=== PATIENT | female | born 1985 | race Caucasian/White ===

== ENCOUNTER 2023-02-02 07:41 | Outpatient (REF) | payer OTHER, SELFPAY ==
--- NOTE | ~2023-02-02 | CT_ITS ---
EXAMINATION: CT SINUS WITHOUT CONTRAST CLINICAL INFORMATION: Chronic maxillary sinusitis. COMPARISON: There are no prior studies available for comparison. TECHNIQUE: Multidetector helical imaging was performed in the axial plane with generation of coronal and sagittal reformatted images. This CT examination was performed using dose optimization techniques as appropriate, variously including the following: *Automated exposure control *Adjustment of mA and/or kV according to patient size (this includes techniques or standardized protocols for targeted exams where dose is matched to indication/reason for exam; i.e. extremities or head) *Use of iterative reconstruction technique DLP: 70 mGy-cm. FINDINGS: FRONTAL SINUSES AND DRAINAGE PATHWAYS: The frontal sinuses are hypoplastic bilaterally. MAXILLARY SINUSES AND DRAINAGE PATHWAYS: The maxillary sinuses are well-developed and appear clear bilaterally. The ostiomeatal complexes are patent bilaterally. ETHMOID SINUSES: The ethmoid sinuses are well-developed bilaterally. There is minimal mucoperiosteal thickening the anterior right ethmoid air cells. SPHENOID SINUSES AND DRAINAGE PATHWAYS: The sphenoid sinuses are well-developed bilaterally. There is minimal mucoperiosteal thickening along the anterior right sphenoid sinus. The sphenoethmoidal recesses are patent. NASAL CAVITY AND NASAL SEPTUM: The nasal septum is deviated to the left. There are no prominent bony nasal septal spurs. The anterior right middle turbinate bone is paradoxically curved medially and abuts the right aspect of the nasal septum. ADDITIONAL RELEVANT FINDINGS: The lamina papyracea are intact. The carotid canals are normally covered by bone. The ethmoid roofs are slightly asymmetric, higher on the left. No periapical disease is seen. The TMJs and orbits are normal. The visualized mastoid air cells are clear. There are no acute intracranial findings. CT/CT sinus wo IV con IMPRESSION: 1. There is no significant active sinus disease. 2. The ostiomeatal complexes are patent bilaterally. 3. The nasal septum is deviated to the left. There are no prominent bony nasal septal spurs. The anterior right middle turbinate bone abuts the right aspect of the nasal septum.
== END 2023-02-02 07:42 | disposition home or self-care (01) ==
LOC: HO.CT 07:41
PROVIDERS: PCP Internal Medicine; Visit Provider Otolaryngology Sleep Medicine
DX: J32.0 Chronic maxillary sinusitis (principal); Z98.890 Other specified postprocedural states
CPT/HCPCS: 70486

== ENCOUNTER 2024-10-16 11:02 | Outpatient (AMB) | payer OTHER, SELFPAY ==
--- NOTE | 2024-10-16 11:04 | MHC.PC.OV ---
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 patient needs medication for asthma General Assembler Required: No Is last menstrual period known: No ( control) Post menopausal: No Patient : No Allergies No Known Allergies [No Known Allergies*] Allergy (Verified 10/16/24 11:34) Medication List - Last Reviewed 10/16/24 by Vianca Busch MA albuterol sulfate 90 mcg/actuation 2 puffs inhalation Q6H PRN cetirizine (Zyrtec) 10 mg PO DAILY levonorgestrel-ethinyl estrad 0.1-20 mg-mcg (Vienva) 1 tab PO DAILY Tobacco use date assessed: 10/16/24 Dental Screening Dental Screen Date: 10/16/24 Did you have a dental visit in the last 12 months?: Yes Did you have a dental problem in the last 6 months where you did not have access to dental care?: No Was dental information given to patient?: Patient has dentist HPI HPI Comments History of Present Illness Details 38-year-old female presents to [facility]. She admits to taking her medications as prescribed without adverse reactions. She was on Lexapro in her early 20s. She notes that her depression has been well-controlled. Prior PCP? - Maryann Amaya Last office visit/CPE/labs - 3-4 years ago Acute issue(s) - Reports an average of 2-3 bowel movements daily for about a year; her stools are usually pale but regular. She thinks her symptoms is related to weight gain for 40 lb in the past 2 years. She denies abdominal pain, bloating, n/v/d. Past Medical History - Asthma, hypertension, myopia (wears glasses), depression, psoriasis, endometriosis Surgical History - Sinus surgery Family History - Dad: Asthma, cardiovascular disease, hyperlipidemia, depression, anxiety - MoM: Asthma, depression, anxiety Social History - Nonsmoker. Does not vape. Drinks 1 beer or cocktail monthly. Smokes couple hits of cannabis daily at bedtime - Has been making healthy dietary choices. Exercises routinely. Difficulty maintaining sleep, sometimes related to her cat waking her up, takes melatonin with some improvement Health maintenance - Last eye exam was 2 months ago with [facility] [place]. Record not available. She will sign a release for her PCP to obtain her ophthalmology record - Last dental visit was 3-4 months ago - Last tetanus vaccine was likely in 2019. Record not available; she will research this - She was not vaccinated for the flu this season - Last [facility] smear test [facility] in 05/2024: Normal - Last mammogram was with [facility] in 12/2023: benign ? cyst. 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 [facility] Medical History (Updated 10/16/24 @ 12:01 by Barbi Trotter CNP) Psoriasis Depression High cholesterol Asthma Endometriosis Surgical History (Updated 10/16/24 @ 11:18 by Vianca Busch MA) History of sinus surgery Family History (Updated 10/16/24 @ 11:21 by Vianca Busch MA) Mother FH: mental illness Asthma Father FH: mental illness Asthma High cholesterol Cardiovascular disease Sister FH: mental illness Social History (Updated 10/16/24 @ 11:13 by Vianca Busch MA) Housing: House Patient Tobacco Use Status: Never used Tobacco e-Cigarette/Vaping Use: Never Used Second Hand Smoke Exposure: No Substance Use Type: Marijuana service: No Current occupational status: employed 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 1. Little interest or pleasure in doing things: not at all 2. Feeling down, depressed, or hopeless: not at all 3. Trouble falling or staying asleep, or sleeping too much: several days 4. Feeling tired or having little energy: several days 5. Poor appetite or overeating: not at all 6. Feeling bad about yourself - or that you are a failure or have let yourself or your family down: not at all 7. Trouble concentrating on things, such as reading the newspaper or watching television: not at all 8. Moving or speaking so slowly that other people could have noticed. Or the opposite - being so fidgety or restless that you have been moving around a lot more than usual: not at all 9. Thoughts that you would be better off or of hurting yourself in some way: not at all Total score: 2 Depression Screening Interpretation: Negative Depression Screening Done: Yes 32662 - PHQ-9 Billing: Yes Source: Developed by Drs. John Welch, Nidhi Flood, David Estrella and colleagues, with an educational adrian from [employer]. Thrive Questionnaire Date Thrive assessed: 10/16/24 I am a: Patient What is your living situation today?: I have a steady place to live Within the past 12 months, did the food you bought not last and you didn't have the money to get more?: Never true Within the past 12 months, did you worry whether your food would run out before you got money to buy more?: Never true Do you have trouble paying for medicines?: No Do you have trouble getting transportation to medical appointments?: No Do you have trouble paying your heating and electricity bill?: No Do you have trouble taking care of your child, family member or friend?: No Do you have trouble with day-to-day activities such as bathing, preparing meals, shopping, managing finances, etc.?: No Are you currently unemployed and looking for a job?: No Are you interested in more education?: No Please select the resources that you would like help with: None Currently or been in a relationship where the following occur: No concerns reported THRIVE Score: 0 AUDIT C Alcohol Use Questionnaire (AUDIT-C) 1. How often do you have a drink containing alcohol?: Monthly or less 2. How many drinks containing alcohol do you have on a typical day when you are drinking?: 1 or 2 3. How often do you have six or more drinks on one occasion?: Never Total Score: 1 Score Reviewed/Action Taken: Yes RODERICK-7 AMB Questionnaire RODERICK-7 Date RODERICK - 7 assessed: 10/16/24 Feeling nervous, anxious, or on edge: 0 = Not at all Not being able to stop or control worryin = Not at all Worrying too much about different things: 0 = Not at all Trouble relaxin = Not at all Being so restless that it is hard to sit still: 0 = Not at all Becoming easily annoyed or irritable: 0 = Not at all Feeling afraid as if something awful might happen: 0 = Not at all Total RODERICK-7 score (0-4 normal; 5-9 mild; 10-14 moderate; 15-21 severe): 0 Source: Developed by Drs. John Welch, Nidhi Flood, David Estrella and colleagues, with an educational adrian from [employer]. RODERICK-7 Assessment Billing RODERICK-7 Assessment Tool: RODERICK-7 Assessment 18125 ACT Questionnaire In the past 4 weeks, how much of the time did your asthma keep you from getting as much done at work, school or at home?: None of the time During the past 4 weeks, how often have you had shortness of breath?: Not at all During the past 4 weeks, how often did your asthma symptoms wake you up at night or earlier than usual in the morning?: Once or twice per week During the past 4 weeks, how often have you had to use your rescue inhaler or nebulizer medication?: Once a week or less How would you rate your asthma control during the past 4 weeks?: Well controlled ACT Interpretation: Negative Score: 22 Review of Systems Const Details: Denies chills, Denies fatigue, Denies fever(s), Denies headache(s) and Denies weakness HEENT Denies change in vision, Denies dizziness, Denies headache(s), Denies hearing loss, Denies nasal congestion, Denies sinus pain, Denies sinus pressure and Denies sore throat Card Denies chest pain, Denies lightheadedness, Denies dyspnea and Denies other (palpitations) Resp Denies cough, Denies dyspnea and Denies wheezing GI Reports frequent stools, Denies abdominal pain, Denies melena, Denies hematochezia, Denies dyspepsia and Denies nausea Denies hematuria and Denies dysuria Musc Denies abnormal gait, Denies myalgias, Denies arthralgias, Denies numbness and Denies tingling Skin/Breast Denies rash, Denies unusual bruising and Denies wounds Neuro Denies abnormal gait, Denies dizziness, Denies headache(s), Denies memory loss, Denies numbness, Denies Sensory deficit (Neuro), Denies tingling and Denies weakness Psych Denies anxiety, Denies depression and Denies memory loss Endo Denies cold intolerance, Denies fatigue, Denies heat intolerance, Denies polydipsia and Denies polyuria Pola/Lymph Denies easy bleeding and Denies easy bruising Aller/Immun Denies wheezing Physical exam (Primary Care) Vital Signs: Last Vital Signs Temp 99.5 F 10/16/24 11:15 Pulse 84 10/16/24 11:15 Resp 16 10/16/24 11:15 BP 122/69 10/16/24 11:15 Pulse Ox 97 10/16/24 11:15 Oxygen Delivery Method Room Air 10/16/24 11:15 BMI result Body Mass Index 33.3 Tobacco/Smoking Status: Tobacco use Status Tobacco use date assessed 10/16/24 10/16/24 11:21 Patient Tobacco Use Status Never used Tobacco 10/16/24 11:21 e-Cigarette/Vaping Use Never Used 10/16/24 11:21 PHQ-9: PHQ-9 Score PHQ-9: Total score 2 10/16/24 11:52 Depression Screening Interpretation: Negative Thrive Assessment: Date of Thrive Assessment Date Thrive assessed 10/16/24 10/16/24 11:09 Currently or been in a relationship where the following occur: No concerns reported Const Other: General: no acute distress, well developed, alert and awake Nutritional Appearance: well nourished Orientation/consciousness: patient oriented x3 HENMT Head: Yes normocephalic and Yes atraumatic Ears: hearing grossly normal bilaterally and TM's normal bilaterally General nose exam: Normal external nose present and Normal nares present Mouth: Normal oral and palatal mucosa present and moist mucous membranes Teeth and gingiva: dentition normal Throat: Yes oropharynx normal Eyes Pupils: Equal, round and reactive pupils present and Pupil accommodation reflex normal EOM: EOMs intact bilaterally Neck Neck: Yes normal visual inspection, Yes no lymphadenopathy and Yes trachea midline Thyroid: Thyroid normal Carotids: no bruits Lymphatic: no lymphadenopathy noted Chest Chest palpation & inspection: normal inspection of the chest Resp Effort & Inspection: normal respiratory effort Auscultation: clear to auscultation bilaterally Cardio Rate: regular rate Rhythm: regular rhythm Heart sounds: S1 normal heart sound present, S2 normal heart sound present, no gallops, no murmurs and no rubs Bruits: no abdominal aortic bruits and no carotid bruits GI Palpation (GI): No Abdominal aortic bruit present, Soft to palpation, nontender, No hepatosplenomegaly present and No Rebound tenderness present Auscultation: normal bowel sounds General: Yes no CVA tenderness Back/Spine/Pelvis Back: no CVA tenderness Cervical Spine: cervical ROM normal and No Cervical spine tenderness Thoracic/Lumbar Spine: thoraco-lumbar ROM normal, No pain with thoraco-lumbar ROM, No thoracic spinal tenderness and No lumbar spinal tenderness Skin General: warm and dry. Normal skin color. Normal skin turgor Lesions: no lesions Rashes: no rashes Trauma: no lacerations or abrasions Wounds: no wounds Nails: normal Neuro General: patient oriented x3, gait normal and CN's II-XI intact bilaterally Cranial nerves: Yes Equal, round and reactive pupils present Cognition (Neuro): normal cognition Gait exam (Neuro): Normal gait present Motor exam (neuro): 5/5 motor strength present throughout Sensory Exam: No Sensory deficit (Neuro) Deep tendon reflexes (DTR's): Right patellar reflex intensity grade: 2+ and Left patellar reflex intensity grade: 2+ Extrem General: Yes normal to inspection, No edema and No calf tenderness Psych Appearance: grossly normal Affect: normal affect Attitude: cooperative Thought process: Normal thought process present Coding Level of Care Code New Pt Level 3 (28888) New Pt Prev Care 40-64y(36451) Diagnoses Normal physical examination, routine Z00.00 Asthma J45.909 Obesity (BMI 30-39.9) E66.9 Frequent stools K52.9 Sleep disturbances G47.9 Laboratory tests ordered as part of a complete physical exam (CPE) Z00.00 Additional Codes Asthma Control Questionnaire - ACT Interpretation: Negative ([id number]) RODERICK-7 Assessment Billing - RODERICK-7 Assessment Tool: RODERICK-7 Assessment 01767 ([id number]) PHQ-9 - 52763 - PHQ-9 Billing: Yes ([id number]) Assessment & Plan Assessment & Plan (1) Normal physical examination, routine: Code(s): Z00.00 - Encounter for general adult medical examination without abnormal findings Category: Medical Plan: No significant functional limitations noted. Continue current treatment regimen. Healthy diet and routine exercise encouraged. Perform lab work and follow-up for telehealth visit in 2-3 weeks. Return sooner with symptoms or concerns. Verbalized understanding and agreed with the plan. (2) Asthma: Code(s): J45.909 - Unspecified asthma, uncomplicated Category: Medical Plan: ACT score is 22, well controlled asthma. Continue current treatment regimen. Follow-up with symptoms or concerns. Verbalized understanding and agreed with the plan. (3) Obesity (BMI 30-39.9): Code(s): E66.9 - Obesity, unspecified Category: Medical Plan: She currently weighs 170 lb, BMI is 33.3. Declines referral to store stock help/dietitian or weight management clinic at this time. She notes that she will continue to make lifestyle changes. Healthy diet and routine exercise encouraged. Follow-up as needed. Verbalized understanding and agreed with the plan. (4) Frequent stools: Code(s): K52.9 - Noninfective gastroenteritis and colitis, unspecified Category: Medical Plan: Reports an average of 2-3 bowel movements daily for about a year; her stools are usually pale but regular. She thinks her symptoms is related to weight gain for 40 lb in the past 2 years. She denies abdominal pain, bloating, n/v/d. Likely related to diet. Declines referral to store stock help/dietitian or gastroenterology. She notes that she will continue to make lifestyle changes. Healthy diet and routine exercise encouraged. Follow-up with worsening or new symptoms. Verbalized understanding and agreed with plan. (5) Sleep disturbances: Code(s): G47.9 - Sleep disorder, unspecified Category: Medical Plan: Reports difficulty maintaining sleep, sometimes related to her cat waking her up. She takes melatonin with some improvement. Instructed on sleep hygiene. Weight loss encouraged. Continue current treatment regimen. Follow-up as needed. Verbalized understanding and agreed with the plan. (6) Laboratory tests ordered as part of a complete physical exam (CPE): Code(s): Z00.00 - Encounter for general adult medical examination without abnormal findings Category: Medical Plan: Fasting labs ordered as part of a complete physical exam. Advised to fast for at least 10 hours before getting labs drawn. May drink water Verbalized understanding and agreed with treatment plan.
[2024-10-16 11:15] VITALS: BP 122/69; PULSE 84; RESP 16; TEMP 37.5; O2SAT 97; BMI 33.3
--- OUTSIDE RECORDS SUMMARY | 2024-10-16 12:44 | XMS_ITS | Clinical Summary ---
Author Organization [employer] Address [address] [place] [address] Care Team Providers Care Chief Growth Officer Name Role Phone Unavailable Primary Care Provider Unavailabl e Social History Tobacco Use Types Packs/Day Years Used Date Smoking Tobacco: Never Assessed Comments Unknown Sex and Gender Information Value Date Recorded Sex Assigned at Female 11/24/2023 2:21 PM EDT Legal Sex Female 2:19 PM EDT Gender Identity Female 11/24/2023 2:21 PM EDT Sexual Orientation Not on file Plan of Treatment Health Maintenance Due Date Last Done Comments Depression Screening 1983 HIV Screening 1983 SDOH Screening 1983 Disability Screening 1983 Alcohol/Substance Use Screening 1995 Tobacco Screening 1995 Family Planning (PISQ) 11/09/1998 Hepatitis C Screening 11/09/2001 DTaP/Tdap/Td Vaccines (1 - Tdap) 11/09/2002 Hepatitis B Vaccines (1 of 3 - 19+ 3-dose series) 11/09/2002 Pap Smear 11/09/2004 Cervical Cancer Screening 11/09/2013 HPV/Cotest 11/09/2013 Mammogram 2023 COVID-19 Vaccine ( - 2023-2 5 season) 2024 Influenza Vaccine (Season Ended) 2025 Zoster Vaccines (1 of 2) 11/09/2033 RSV Patients and Pa tients Aged 60 years or older (1 - 1-dose 75+ series) 11/09/2058 HIB Vaccines Aged Out No longer eligi ble based on patient's age to complete this topic HPV Vaccines Aged Out No longer eligi ble based on patient's age to complete this topic Hepatitis A Vaccines Aged Out No long er eligible based on patient's age to complete this topic IPV Vaccines Aged Out No longer eligi ble based on patient's age to complete this topic Meningococcal B Vaccine Aged Out No l onger eligible based on patient's age to complete this topic Meningococcal Vaccine Aged Out No gerardo moncho eligible based on patient's age to complete this topic Pneumococcal Vaccine: Pediat rics (0 to 5 Years) and At-Risk Patients (6 to 49) Years) Aged Out No longer eligible b ased on patient's age to complete this topic RSV under 20 months Aged Out No longe r eligible based on patient's age to complete this topic Rotavirus Vaccines Aged Out No longer eligible based on patient's age to complete this topic Insurance [facility]
== END 2024-10-16 11:59 | disposition home or self-care (01) ==
LOC: HO.HMCFM 11:03
PROVIDERS: PCP Nurse Practitioner Family; Visit Provider Nurse Practitioner Family
DX: Z00.00 Encounter for general adult medical examination without abnormal findings (principal); K52.9 Noninfective gastroenteritis and colitis, unspecified; G47.9 Sleep disorder, unspecified; E66.9 Obesity, unspecified; Z68.33 Body mass index [BMI] 33.0-33.9, adult; J45.909 Unspecified asthma, uncomplicated

== ENCOUNTER → 2024-10-16 11:02 | Outpatient (BNVA) | payer OTHER, SELFPAY | PROVIDERS: PCP Nurse Practitioner Family; Visit Provider Nurse Practitioner Family | DX: Z00.00 Encounter for general adult medical examination without abnormal findings (principal); J45.909 Unspecified asthma, uncomplicated; E66.9 Obesity, unspecified; K52.9 Noninfective gastroenteritis and colitis, unspecified; G47.9 Sleep disorder, unspecified; Z68.33 Body mass index [BMI] 33.0-33.9, adult | CPT/HCPCS: 96127; 96160 ==

== ENCOUNTER 2024-12-19 07:36 | Outpatient (REF) | payer OTHER, SELFPAY ==
--- OUTSIDE RECORDS SUMMARY | 2024-12-19 07:38 | XMS_ITS | Clinical Summary ---
Author Organization [facility] Address [address] [place] [address] Care Team Providers Care Director Of Strategic Programs Name Role Phone Anjel Vidal Griffith Primary Care Provider [phone] Allergies No known active allergies Medications ketoconazole (NIZORAL) 2% cream APPLY DAILY ON THE RASH 0 Active Lo Loestrin Fe 1 mg-10 mcg (24)/10 mcg (2) tablet per tablet TAKE ONE COMBINATION TABLET FOR 24 DAYS. SKIP THE LAST 4 TABLETS AND START A NEW PACK 1 Active albuterol (PROAIR HFA,VENTOLIN HFA) 90 mcg inhaler Inhale 1-2 puffs by mouth every 6 hours as needed for wheezing or shortness of breath. Use with spacer PRN Active L.acidoph/B.long /L.plant/B.lac (PROBIOTIC ACIDOPHILUS BEADS ORAL) Take by mouth. Act juanita methylPREDNISolo ne (MEDROL DOSEPACK) 4 mg tablet follow package directions 21 tablet 1 3 Active Active Problems No known active problems Social History Tobacco Use Types Packs/Day Years Used Date Smoking Tobacco: Former Cigarettes Q uit: 2004 Smokeless Tobacco: Never Alcohol Use Standard Drinks/Week Comments Not Currently 0 (1 standard drink = 0.6 oz pur e alcohol) Comments Unknown Sex and Gender Information Value Date Recorded Sex Assigned at Female 02/13/2023 4:34 PM EDT Legal Sex Female 8:35 AM EDT Gender Identity Female 02/13/2023 4:34 PM EDT Sexual Orientation Straight 02/13/2023 4: 34 PM EDT Last Filed Vital Signs Vital Sign Reading Time Taken Comments Blood Pressure 115/80 01/05/2021 11:33 AM EDT Pulse 97 01/05/2021 11:33 AM EDT Temperature 36.6 C (97.8 F) 01/05/2021 11:33 AM EDT Respiratory Rate 18 01/05/2021 11:33 AM EDT Oxygen Saturation 98% 01/05/2021 11:33 AM EDT Inhaled Oxygen Concentration - - Weight 59 kg (130 lb) 12/26/2020 5:02 PM EDT Height 154.9 cm (5' 1 ) 12/26/2020 5:02 PM EDT Body Mass Index 24.56 12/26/2020 5:02 PM EDT Plan of Treatment Health Maintenance Due Date Last Done Comments Cervical Cancer Screening 1983 HIV Screening 1983 HPV and Pap Smear 1983 Hepatitis C Screening 1983 Pap Smear 1983 Pneumococcal Vaccine: Pediat lane (0-5 Years) and At-Risk Patients (6-50 Years) (1 of 2 - PCV) 11/09/2002 Varicella Vaccines (2 of 2 - 13+ 2-dose series) 07/20/2007 06/22/2007 Mammogram 2023 COVID-19 Vaccine (4 - 2023-2 5 season) 2024 05/06/2021, 08/22/2020, 08/01/2020 Alcohol/Substance Use Screening 05/16/2024 Depression Screening and Follow-Up 05/16/2024 Social Drivers of Health Soraya ual Screening 05/16/2024 DTaP,Tdap,and Td Vaccines (8 - Td or Tdap) 12/06/2024 12/06/2014, 06/22/2007, 10/28/1997, Additional history exists Influenza Vaccine (#1) 2025 , 07/12/2020, 03/03/2016, Additional history exists RSV Vaccine (60+ years old a nd patients) (1 - 1-dose 75+ series) 11/09/2058 Hepatitis B Vaccines Completed 11/27/2005, 06/19/1996, 06/19/1996, Additional history exists Insurance [facility] on file Advance Directives * Full Code (Latest Code Status on File) Date Activated Date Inactivated Comments 01/05/2021 10:08 AM 01/05/2021 3:39 PM * Full Code Date Activated Date Inactivated Comments 01/05/2021 6:42 AM 01/05/2021 10:08 AM Care Teams Director Of Strategic Programs Relationship Specialty Start Date End Date [facility] [address] [place] [id number] PCP - General Family Medicine 01/24/23
[2024-12-19 11:31] LABS: Appearance Urine Clear; Glucose Urine UA Negative (Negative); PH 5.5 (5.0-9.0); Specific Gravity - Urine 1.020 (1.005-1.025); UMIC TRIGGER UACC YES
[2024-12-19 11:33] LABS: MANUAL DIFF FLAG NO
[2024-12-19 11:39] LABS: Hematocrit 39.9 % (37.0-47.0); Hemoglobin 13.4 g/dl (12.0-16.0); Imm Gran Abs Auto 0.06 X10*3/uL (0.00-0.03); Imm Gran Pct Auto 0.8 % (0.0-0.4); Lymphocytes Absolute Auto 2.4 X10*3/uL (1.2-4.9); Mean Corpuscular HGB Conc 33.6 g/dl (31.0-35.0); Mean Corpuscular Hemoglobin 31.4 pg (27.0-33.0); Mean Corpuscular Volume 93.4 fL (80.0-98.0); NRBC Abs Auto 0.000 X10*3/uL (0.0-0.012); NRBC Pct Auto 0.0 /100WBC (0.0-0.2); Platelet Count 305 X10*3/uL (160-400); Red Blood Count 4.27 X10*6/uL (4.20-5.50); White Blood Count 7.6 X10*3/uL (4.8-10.8)
[2024-12-19 11:42] LABS: UACC Culture Trigger YES
[2024-12-19 11:59] LABS: Alanine Aminotransferase 12 U/L (0-31); Albumin Level 3.9 g/dL (3.5-5.0); Alkaline Phosphatase 84 U/L (39-117); Anion Gap 13 (12-20); Aspartate Amino Transferase 25 U/L (5-31); Blood Urea Nitrogen 12 mg/dL (9-16); Calcium 8.6 mg/dL (8.4-10.2); Carbon Dioxide 21 mmol/L (22-29); Chloride 111 mmol/L (96-108); Cholesterol 203 mg/dL (<200); Estimated Glomerular Filt Rate > 60; HDL Cholesterol 50 mg/dL (>40); Potassium 4.1 mmol/L (3.3-5.1); Sodium 141 mmol/L (135-145); Total Protein 7.0 g/dL (6.5-8.0); Triglycerides 153 mg/dL (<150)
== END 2024-12-19 07:37 | disposition home or self-care (01) ==
LOC: HO.WFDLDS 07:36
PROVIDERS: Visit Provider Nurse Practitioner Family
DX: Z00.00 Encounter for general adult medical examination without abnormal findings (principal); Z13.220 Encounter for screening for lipoid disorders; Z13.0 Encounter for screening for diseases of the blood and blood-forming organs and certain disorders involving the immune mechanism; Z13.29 Encounter for screening for other suspected endocrine disorder; Z13.89 Encounter for screening for other disorder
CPT/HCPCS: 36415; 80053; 80061; 81001; 82043; 82306; 82570; 84443; 85025; 87086

== ENCOUNTER 2024-12-21 14:11 | Outpatient (AMB) | payer OTHER, SELFPAY ==
--- NOTE | 2024-12-21 14:04 | MHC.PC.OV ---
Intake Visit Reasons: telehealth 2-3 wks labs review RE Intake Note: Tameka presents for a telehealth in regards to her most recent lab results. Allergies No Known Allergies (No Known Allergies*) Allergy (Verified 12/21/24 14:06) Tobacco use date assessed: 12/21/24 Dental Screening Dental Screen Date: 12/21/24 Did you have a dental visit in the last 12 months?: Yes Did you have a dental problem in the last 6 months where you did not have access to dental care?: No Was dental information given to patient?: Patient has dentist HPI HPI Comments History of Present Illness Details 39-year-old female presents for telehealth visit for review of recent lab results. She notes that she has been making healthy dietary choices and exercising regularly. She recently lost 6 lb. She notes that she recently saw her fire protection equipment technician and recommended laparoscopic surgery for her endometriosis. Patient will obtain information for surgeon who will be doing the laparoscopic surgery and provide to PCP for referral. She requests gastroenterology referral for frequent stools. Reports an average of 2-3 bowel movements daily for about a year; her stools are usually pale but regular. No acute symptoms at this time. [facility] Medical History (Updated 12/21/24 @ 14:53 by Barbi Trotter CNP) Psoriasis Depression High cholesterol Asthma Endometriosis Surgical History (Updated 10/16/24 @ 11:18 by Vianca Busch MA) History of sinus surgery Family History Mother FH: mental illness Asthma Father FH: mental illness Asthma High cholesterol Cardiovascular disease Sister FH: mental illness Social History (Updated 12/21/24 @ 14:07 by Nohemy Clemons MA) Housing: House Alcohol intake: current Patient Tobacco Use Status: Never used Tobacco e-Cigarette/Vaping Use: Never Used Second Hand Smoke Exposure: No Substance Use Type: Marijuana service: No Current occupational status: employed 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 Current occupational exposures/hazards: No Cognitive needs: No Hearing needs: No Vision needs: Yes Questionnaire Thrive Questionnaire Date Thrive assessed: 10/16/24 I am a: Patient What is your living situation today?: I have a steady place to live Within the past 12 months, did the food you bought not last and you didn't have the money to get more?: Never true Within the past 12 months, did you worry whether your food would run out before you got money to buy more?: Never true Do you have trouble paying for medicines?: No Do you have trouble getting transportation to medical appointments?: No Do you have trouble paying your heating and electricity bill?: No Do you have trouble taking care of your child, family member or friend?: No Do you have trouble with day-to-day activities such as bathing, preparing meals, shopping, managing finances, etc.?: No Are you currently unemployed and looking for a job?: No Are you interested in more education?: No Please select the resources that you would like help with: None Currently or been in a relationship where the following occur: No concerns reported THRIVE Score: 0 AUDIT C Alcohol Use Questionnaire (AUDIT-C) 1. How often do you have a drink containing alcohol?: Monthly or less 2. How many drinks containing alcohol do you have on a typical day when you are drinking?: 1 or 2 3. How often do you have six or more drinks on one occasion?: Never Total Score: 1 RODERICK-7 AMB Questionnaire RODERICK-7 Date RODERICK - 7 assessed: 10/16/24 Source: Developed by Drs. John Welch, Nidhi Flood, David Estrella and colleagues, with an educational adrian from [employer]. Review of Systems Const Details: Denies chills, Denies fatigue, Denies fever(s), Denies headache(s) and Denies weakness Cardiac Denies chest pain, Denies claudication, Denies leg edema, Denies lightheadedness, Denies palpitations, Denies dyspnea, Denies dyspnea on exertion, Denies orthopnea and Denies other (Loss of consciousness) Resp Denies cough, Denies excessive phlegm production, Denies dyspnea, Denies dyspnea on exertion, Denies snoring and Denies wheezing GI Reports as per HPI Physical exam (Primary Care) Tobacco/Smoking Status: Tobacco use Status Tobacco use date assessed 12/21/24 12/21/24 14:09 Patient Tobacco Use Status Never used Tobacco 12/21/24 14:09 e-Cigarette/Vaping Use Never Used 12/21/24 14:09 Thrive Assessment: Date of Thrive Assessment Date Thrive assessed 10/16/24 12/21/24 14:09 Currently or been in a relationship where the following occur: No concerns reported Const Other: 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 Telehealth Telehealth Telehealth Platform: Telephone Location of provider rendering services: practice address Location of patient: address on file Patient Identification confirmed using: Name, : Yes Telehealth method: voice only Patient verbally consented to treatment: Yes Patient verbally consented to billing insurance company: Yes Patient informed of any privacy concerns related to visit: Yes Coding Level of Care Code Tele Est Pt Level 3 (14704) Diagnoses Hyperlipidemia E78.5 Frequent stools K52.9 Time Spent (min) 15 Assessment & Plan Assessment & Plan (1) Hyperlipidemia: Code(s): E78.5 - Hyperlipidemia, unspecified Category: Medical Plan: Recent triglycerides, total cholesterol, and LDL levels are slightly elevated, 153, 203, and 123 respectively. She notes that her lipid panel levels have dropped by 25 points. Advised to limit foods high in saturated fat and avoid foods high in trans fat. Routine exercise encouraged. Fast for 10-12 hours, may drink water combined perform lipid panel blood work 2-3 days before next visit. Follow-up for telehealth visit in 2 months. Return sooner with symptoms or concerns. Verbalized understanding and agreed with the plan. (2) Frequent stools: Code(s): K52.9 - Noninfective gastroenteritis and colitis, unspecified Category: Medical Plan: She requests gastroenterology referral for frequent stools. Reports an average of 2-3 bowel movements daily for about a year; her stools are usually pale but regular. Healthy diet encouraged. Referred to [facility] gastroenterology. Orders: Orders Lipid Panel 2 Months E78.5 - Hyperlipidemia, unspecified Referrals Gastroenterology Referral K52.9 - Noninfective gastroenteritis and colitis, unspecified Medications: Changed From albuterol sulfate 90 mcg/actuation 2 puffs inhalation Q6H PRN To albuterol sulfate 90 mcg/actuation 2 puffs inhalation Q6-8H PRN 8.5 grams 4RF shortness of breath or wheezing
--- OUTSIDE RECORDS SUMMARY | 2024-12-21 14:13 | XMS_ITS | Encounter Summary ---
Author Organization [facility] Address [address] [place] [address] Care Team Providers Care Claims Technician Name Role Phone Kiley Orellana MD Primary Care Provider Unavailable Reason for Visit * Reason Onset Date Comments Immunization,travel 06/05/2018 Encounter Details Date Type Department Care Team Description 06/05/2018 Telephone [facility]EL [facility]IN[facility] [address] [place] [id number] Kiley Orellana MD Immunization,travel Social History Tobacco Use Types Packs/Day Years Used Date Smoking Tobacco: Never Smokeless Tobacco: Never Alcohol Use Standard Drinks/Week Comments No 0 (1 standard drink = 0.6 oz pur e alcohol) Sex Assigned at Date Recorded Not on file documented as of this encounter Miscellaneous Notes * Telephone Encounter - Jessica Aguillon - 06/05/2018 1:09 PM EST Patient request Immunizations for travel Where are you traveling to? [place] Has a specific question regarding Typhoid - asking for oral instead of coming in for an injection When will you depart for the trip? 07/01/18 How long will you be gone? 2 wks Are you traveling in a rural or urban area[place] Would you like to arrange travel immunization for anyone else? NO If Yes, please list: NA documented in this encounter Plan of Treatment Not on file documented as of this encounter Visit Diagnoses Not on filedocumented in this encounter Care Teams Claims Technician Relationship Specialty Start Date End Date Kiley Orellana MD PCP - General Internal Medicine 09/05/17 documented as of this encounter
--- OUTSIDE RECORDS SUMMARY | 2024-12-21 14:13 | XMS_ITS | Clinical Summary ---
Author Organization [employer] Address [address] [place] [address] Care Team Providers Care Ornament Maker Hand Name Role Phone Unavailable Primary Care Provider [...] Tobacco Screening 1995 Family Planning (PISQ) 11/09/1998 HPV Vaccines (1 - 3-dose series) 11/09/1998 Hepatitis C Screening 11/09/2001 DTaP/Tdap/Td Vaccines (1 - Tdap) 11/09/2002 Hepatitis B Vaccines (1 of 3 - 19+ 3-dose series) 11/09/2002 Pap Smear 11/09/2004 Cervical Cancer Screening 11/09/2013 HPV/Cotest 11/09/2013 Mammogram 2023 COVID-19 Vaccine (1 - 2023-2 5 season) 2024 Influenza Vaccine (#1) 2025 Zoster Vaccines (1 of 2) 11/09/2033 [...] Years) and At-Risk Patients (6 to 49) Years Aged Out No longer eligible b ased on patient's age to complete this topic RSV under 20 months Aged Out No longe r eligible based on patient's age to complete this topic Rotavirus Vaccines Aged Out No longer eligible based on patient's age to complete this topic Insurance [facility] DIRECT
--- OUTSIDE RECORDS SUMMARY | 2024-12-21 14:13 | XMS_ITS | Clinical Summary ---
Author Organization [facility] Address [address] [place] [address] Care Team Providers Care Supervisor Kosher Dietary Service Name Role Phone Anjel Vidal Griffith Primary Care Provider [phone] Allergies No known active allergies Medications ketoconazole [...] 11/27/2005, 06/19/1996, 06/19/1996, Additional history exists Insurance [facility] on file Advance Directives * Full Code (Latest Code Status on File) Date Activated Date Inactivated Comments 01/05/2021 10:08 AM 01/05/2021 3:39 PM * Full Code Date Activated Date Inactivated Comments 01/05/2021 6:42 AM 01/05/2021 10:08 AM Care Teams Supervisor Kosher Dietary Service Relationship Specialty Start Date End Date Vidla Hobbs [address] [place] [id number] PCP - General Family Medicine 01/24/23
== END 2024-12-21 15:28 | disposition home or self-care (01) ==
LOC: HO.HMCFM 14:11
PROVIDERS: PCP Nurse Practitioner Family; Visit Provider Nurse Practitioner Family
DX: E78.5 Hyperlipidemia, unspecified (principal); K52.9 Noninfective gastroenteritis and colitis, unspecified